=== PATIENT | female | born 1980 | race Caucasian/White ===

== ENCOUNTER 2021-09-07 08:57 | Emergency (ER) | payer BC, SELFPAY ==
[2021-09-07] MEDS ORDERED: Lidocaine 2% PF 5 ML VIAL ONE (13:43)
[2021-09-07] MEDS ORDERED: Boostrix 0.5 ML (Tdap) VIAL ONE (14:00)
[2021-09-07] MEDS ORDERED: Ketorolac Tromethamine 30 MG/ML VIAL ONE (14:00)
== END 2021-09-07 14:30 | disposition home or self-care (01) ==
LOC: ERS 08:57
DX: S01.01XA Laceration without foreign body of scalp, initial encounter (principal); Z23 Encounter for immunization; W06.XXXA Fall from bed, initial encounter
CPT/HCPCS: 12002; 90471; 90715; 96372; J1885; J2001